=== PATIENT | male | born 1985 | race Caucasian/White ===

== ENCOUNTER 2016-12-30 17:58 | Emergency (ER) | payer MEDICAID ==
[2016-12-30] MEDS ORDERED: HYDROmorphONE/DILAUDID 1 MG/ML SYR IVP ONE ×2 (19:36→23:04)
[2016-12-30 19:45] LABS: % IMMATURE GRANULYOCYTES 0.3 % (0.0-1.1); ABSOLUTE IMMATURE GRANULOCYTES 0.04 10^3/uL (0.00-0.10); ADD DIFF? NO; ADD MORPH? NO; ADD SCAN? NO; ATYPICAL LYMPHOCYTE FLAG 20 (0-99); FRAGMENT RBC FLAG 0 (0-99); HEMATOCRIT 43.1 % (40.0-51.0); HEMOGLOBIN 15.1 g/dL (13.7-17.5); LEFT SHIFT FLG 0 (0-99); LIPEMIA HEMOLYSIS FLAG 90 (0-99); MEAN CELL HEMOGLOBIN 32.5 pg (27.9-34.1); MEAN CELL VOLUME 92.9 fL (81.5-99.8); MEAN PLATELET VOLUME 9.7 fL (8.7-11.7); PLATELET CLUMPS FLAG 0 (0-99); PLATELET COUNT 236 10^3/uL (150-400); RED BLOOD CELL COUNT 4.64 10^6/uL (4.40-6.38); RED CELL DISTRIBUTION WIDTH 11.9 % (11.5-15.2)
[2016-12-30 20:06] LABS: ALANINE AMINOTRANSFERASE 31 IU/L (21-72); ALBUMIN 4.3 g/dL (3.5-5.0); ALKALINE PHOSPHATASE 54 IU/L (38-126); ANION GAP 9 mEq/L (8-16); ASPARTATE AMINOTRANSFERASE 29 IU/L (17-59); BILIRUBIN-CONJUGATED 0.3 mg/dL (0.0-0.5); BILIRUBIN-UNCONJUGATED 0.7 mg/dL (0.0-1.1); CALCIUM 9.5 mg/dL (8.5-10.4); CARBON DIOXIDE 26 mEq/l (22-31); CHLORIDE 102 mEq/L (97-110); CREATININE 0.8 mg/dL (0.7-1.3); GLOMERULAR FILTRATION RATE > 60; GLUCOSE 78 mg/dL (70-100); POTASSIUM 4.3 mEq/L (3.5-5.2); SODIUM 137 mEq/L (134-144); TOTAL PROTEIN 7.1 g/dL (6.3-8.2)
[2016-12-30 20:18] LABS: TROPONIN I < 0.012 ng/mL (0-0.034)
[2016-12-30] MEDS ORDERED: IOPAMIDOL (ISOVUE 370) 100 ML BTL IV ONE (20:44)
[2016-12-30 22:14] VITALS: RESP 16
--- NOTE | 2016-12-30 22:56 | CPEKG ---
Heart Rate: 41 RR Interval: 1463 P-R Interval: 160 QRSD Interval: 102 QT Interval: 476 QTC Interval: 394 P Kerrick: 53 QRS Kerrick: 81 T Wave Kerrick: 61 EKG Severity - ABNORMAL ECG - EKG Impression: SINUS BRADYCARDIA EKG Impression: BORDERLINE VOLTAGE CRITERIA FOR LVH VENTRICULAR HYPERTROPHY EKG Impression: ST ELEV, PROBABLE NORMAL EARLY REPOL PATTERN EKG Impression: TALL T WAVES, PROBABLY NORMAL VARIANT Electronically Signed By: Jackson Bee 31-Dec-2016 14:31:25
[2016-12-30] MEDS ORDERED: HYDROmorphONE/DILAUDID 1 MG/ML SYR ONE (22:59)
--- NOTE | 2016-12-31 00:39 | EDPHY ---
H & P Stated Complaint: Pain R upper chest/shoulder pain x 2 days;pt thinks its his GB HPI/ROS: Chief complaint: Right upper chest pain History of present illness: This is a 31-year-old male who presents to the emergency department for right upper chest pain. Patient reports the onset of symptoms earlier today. Symptoms have progressively worsened. He states the pain radiates up into his neck as well. He does state it makes it somewhat hard to breathe. He reports he was sawing wood extensively recently and wonders if this contributed to the onset of symptoms. He denies other precipitating factors. He denies alleviating factors. He denies other associated signs or symptoms including no history of direct trauma, no fevers or cold symptoms. In addition, patient is complaining of pain in the right upper aspect of his abdomen. He has had this pain for number of weeks. It has been persistent. He denies precipitating factors. He denies alleviating factors. He does state it is worse after eating. Denies other associated signs or symptoms including no vomiting, no diarrhea, no urinary symptoms. Review of systems: A 10 point review of systems was obtained and other than described above was negative - Personal History Current Tetanus Diphtheria and Acellular Pertussis (TDAP): Yes - Medical/Surgical History Other PMH: facial traumas - Social History Smoking Status: Never smoked - Physical Exam Exam: General Appearance: Alert, nontoxic. Eyes: Pupils equal and round no pallor or injection. ENT, Mouth: Mucous membranes moist. Respiratory: There are no retractions, lungs are clear to auscultation. Cardiovascular: Regular rate and rhythm. Gastrointestinal: Bowel sounds are normal. Abdomen is soft and nondistended. Mild tenderness in the right upper quadrant without Forbes sign. No other peritoneal signs. Neurological: Alert and oriented. Strength and sensation intact and symmetrical. Skin: Warm and dry, no rashes. Musculoskeletal: Head is normocephalic, atraumatic. The spine is nontender to palpation along its entire length. Mild tenderness over the right superior chest wall and over the lateral aspect of the right inferior neck. He has discomfort moving his right shoulder but has good range of motion. The rest of the chest wall is nontender. The other extremities are unremarkable. Psychiatric: Patient is oriented X 3, there is no agitation. Constitutional: Initial Vital Signs Temperature (C) 36.8 C 12/30/16 18:05 Heart Rate 51 L 12/30/16 18:05 Respiratory Rate 14 12/30/16 18:05 Blood Pressure 110/61 12/30/16 18:05 O2 Sat (%) 98 12/30/16 18:05 O2 Delivery Mode Room Air Allergies/Adverse Reactions: No Known Allergies Allergy (Unverified 12/30/16 18:10) Home Medications: Medication Instructions Recorded NK [No Known Home Meds] 12/30/16 Medical Decision Making - Diagnostics Imaging: Discussed imaging studies w/ call worker Radiologist ED Course/Re-evaluation: Patient is seen in conjunction with my secondary supervising physician Dr. Gab Ryan. Patient presents to the emergency department primarily complaining of pain to the right upper chest wall radiating into his neck. He further complains of persistent right upper quadrant pain for a number of weeks. On presentation he is nontoxic. Vital signs are stable. Physical exam does reveal tenderness to palpation over the anterior chest wall and neck. There is some abdominal discomfort without peritoneal signs. Evaluation of his chest discomfort is largely unremarkable. I have discussed with him it is not clear as to the cause of his symptoms although they could be musculoskeletal. Patient does have mildly elevated lipase. He does report regularly drinking alcohol. I do believe patient is appropriate for outpatient management. I have discussed pain management with him. He is asked to abstain from drinking alcohol. He is asked to follow up with the primary care doctor for recheck of his symptoms and referral information is provided. He is given strict return precautions. Patient voiced understanding and agreement with plan. Differential Diagnosis: Included but not limited to musculoskeletal pain, pulmonary infection, pulmonary embolism, pneumothorax, DVT, peptic ulcer disease, biliary tract disease, pancreatitis - Data Points Laboratory Results: Laboratory Results 12/30/16 19:35 12/30/16 19:35 Medications Given: Discontinued Medications Hydrocodone Bitart/Acetaminophen ([place] 5/325mg Prepack#6) 1 btl TAKEHOME EDNOW ONE Stop: 12/31/16 00:44 Last Admin: 12/31/16 00:51 Dose: 1 btl Hydromorphone HCl (Dilaudid) 0.5 mg IVP EDNOW ONE Stop: 12/30/16 19:37 Last Admin: 12/30/16 20:02 Dose: 0.5 mg Hydromorphone HCl (Dilaudid) 0.5 mg IVP EDNOW ONE Stop: 12/30/16 23:05 Last Admin: 12/30/16 23:05 Dose: 0.5 mg Departure - Departure Disposition: Home, Routine, Self-Care Clinical Impression: Right-sided chest wall pain, Pancreatitis Condition: Good Instructions: Hydrocodone/Acetaminophen (By mouth), Pancreatitis (ED), Chest Wall Pain (ED) Additional Instructions: Please follow-up with the primary care doctor for continued evaluation and care In regards to pain control see the following: Use ibuprofen [600] mg [3] times a day for the next 2-3 days for pain In addition You have been prescribed [[place]] for pain. You can take 1 tablet every 6 hours for pain. [[place]] contains Tylenol, do not take extra Tylenol/ acetaminophen/Apap with it. It is sedating. If symptoms worsen or new symptoms develop return to the emergency room for recheck Referrals: NONE *PRIMARY CARE P,. [Primary Care Provider] - As per Instructions [facility],. [Clinic] - As per Instructions Gab Rodriguez MD [Medical Doctor] - As per Instructions
[2016-12-31] MEDS ORDERED: HYDROCOD/APAP 5/325 PREPACK#6 BTL TAKEHOME ONE (00:43)
[2016-12-31 01:02] VITALS: BP 116/71; PULSE 54; TEMP 97.9; O2SAT 97
== END 2016-12-31 01:03 | disposition home or self-care (01) ==
DX: R07.89 Other chest pain (principal); K85.90 Acute pancreatitis without necrosis or infection, unspecified
CPT/HCPCS: 96374; J1170; Q9967